=== PATIENT | female | born 1980 | race American Indian/Alaskan Native ===

== ENCOUNTER 2020-05-18 07:02 | Emergency (ER) | payer OTHER ==
[~2020-05-18] VITALS: Ht 154.9 cm; Wt 67.6 kg
[2020-05-18] MEDS ORDERED: MEDROLPACK PO (09:56)
[2020-05-18] MEDS ORDERED: NORFLEX100MG PO (09:56)
[2020-05-18] MEDS ORDERED: KETO10TA2 PO (09:56)
== END 2020-05-18 10:13 | disposition home or self-care (01) ==
LOC: ER 07:02
DX: M54.5 Low back pain (principal)